=== PATIENT | female | born 1970 | race Caucasian/White ===

== ENCOUNTER 2016-08-13 15:11 | Emergency (ER) | payer BC | END 2016-08-13 15:39 | disposition home or self-care (01) | LOC: NAV ERS 15:11 | DX: L03.115 Cellulitis of right lower limb (principal); I10 Essential (primary) hypertension; M79.7 Fibromyalgia; G43.909 Migraine, unspecified, not intractable, without status migrainosus; Z79.899 Other long term (current) drug therapy | CPT/HCPCS: 99283 ==